=== PATIENT | female | born 1985 | race Caucasian/White ===

== ENCOUNTER → 2017-05-25 | Outpatient (CLI) | payer OTHER ==
[2017-05-25 17:23] LABS: BASO # 0.1 10^3/uL (0.0-0.2); BASO % 0.7 % (0.0-1.0); EOS # 0.1 10^3/uL (0.0-0.50); IMMATURE GRANULOCYTE % 0.7 % (0-0); LYMPH % 22.1 % (24.0-44.0); MEAN CORPUSCULAR HEMOGLOBIN 29.4 pg (27.0-33.0); MEAN CORPUSCULAR HGB CONC 33.3 g/dl (32.0-36.5); MEAN CORPUSCULAR VOLUME 88.5 fl (80.0-96.0); MONO % 11.6 % (0.0-5.0); NEUTROPHILS # 5.7 10^3/uL (1.8-7.7); NEUTROPHILS % 63.9 % (36.0-66.0); PLATELET COUNT, AUTOMATED 280 10^3/uL (150-450); RED CELL DISTRIBUTION WIDTH 12.5 % (11.5-14.5); WHITE BLOOD COUNT 8.9 10^3/uL (4.0-10.0)
[2017-05-26 11:05] LABS: HBsAg Prenatal NEGATIVE (NEGATIVE)
== END ==
LOC: M SMT 15:35
PROVIDERS: ATTEND Advanced Practice Midwife
DX: Z34.81 Encounter for supervision of other normal pregnancy, first trimester (principal); Z3A.11 11 weeks gestation of pregnancy

== ENCOUNTER → 2017-06-08 | Outpatient (CLI) | payer OTHER ==
--- NOTE | 2017-06-08 16:04 | REP ---
Clinical: Dating and viability. Technique: Transabdominal first trimester obstetrical ultrasound with color Doppler evaluation. Findings: Single live early intrauterine is appreciated. Biometrical measurements corresponds to 14 weeks 4 days gestational age with estimated date of delivery 12/03/2017 . heart rate equals 153 beats per minute. No gross abnormalities are identified. Impression: Single live early intrauterine at 14 weeks 4 days gestational age. Complete anatomical assessment should be performed and 19-20 weeks. Signed by Barron Cruz MD 06/08/2017 03:56 P
== END ==
LOC: M SMT 14:55
PROVIDERS: ATTEND Advanced Practice Midwife
DX: Z34.81 Encounter for supervision of other normal pregnancy, first trimester (principal)

== ENCOUNTER → 2017-06-30 | Outpatient (CLI) | payer OTHER | LOC: M SMT 10:46 | PROVIDERS: ATTEND Advanced Practice Midwife | DX: Z13.79 Encounter for other screening for genetic and chromosomal anomalies (principal) ==

== ENCOUNTER → 2017-07-28 | Outpatient (CLI) | payer OTHER | LOC: M SMT 13:50 | DX: Z34.82 Encounter for supervision of other normal pregnancy, second trimester (principal); Z3A.21 21 weeks gestation of pregnancy | CPT/HCPCS: 76811 ==

== ENCOUNTER → 2017-08-28 | Outpatient (CLI) | payer OTHER ==
[2017-08-28 13:36] LABS: HEMATOCRIT 37.4 % (36.0-47.0); HEMOGLOBIN 12.3 g/dl (12.0-16.0); MEAN CORPUSCULAR HEMOGLOBIN 29.8 pg (27.0-33.0); MEAN CORPUSCULAR HGB CONC 32.9 g/dl (32.0-36.5); MEAN CORPUSCULAR VOLUME 90.6 fl (80.0-96.0); PLATELET COUNT, AUTOMATED 194 10^3/uL (150-450); RED BLOOD COUNT 4.13 10^6/uL (4.00-5.40); RED CELL DISTRIBUTION WIDTH 12.9 % (11.5-14.5)
[2017-08-28 14:00] LABS: GLUCOSE CHALLENGE TEST 1 HOUR 92 MG/DL (LESS THAN 140)
== END ==
LOC: M SMT 09:26
DX: Z34.82 Encounter for supervision of other normal pregnancy, second trimester (principal)

== ENCOUNTER → 2017-11-07 | Outpatient (REF) | payer OTHER | LOC: M LAB REF 17:53 | DX: Z34.83 Encounter for supervision of other normal pregnancy, third trimester (principal) ==

== ENCOUNTER 2017-11-17 06:45 | Inpatient (IN) | payer OTHER ==
[2017-11-17 08:49] LABS: HEMATOCRIT 38.1 % (36.0-47.0); HEMOGLOBIN 13.1 g/dl (12.0-15.5); MEAN CORPUSCULAR HEMOGLOBIN 29.7 pg (27.0-33.0); MEAN CORPUSCULAR HGB CONC 34.4 g/dl (32.0-36.5); MEAN CORPUSCULAR VOLUME 86.4 fl (80.0-96.0); PLATELET COUNT, AUTOMATED 171 10^3/uL (150-450); RED BLOOD COUNT 4.41 10^6/uL (4.00-5.40); RED CELL DISTRIBUTION WIDTH 12.8 % (11.5-14.5); WHITE BLOOD COUNT 11.8 10^3/uL (4.0-10.0)
[2017-11-17] MEDS ORDERED: miSOPROStol 50 MCG 1/2 TAB (S0191) PV (09:00)
[2017-11-17] MEDS: LR 1,000 ML IV (11:00)
[2017-11-17] MEDS ORDERED: LR 1,000 ML IV (11:00)
[2017-11-17] MEDS ORDERED: FENTANYL 2MCG/ML ROPIVACAINE 0.2% IN 0.9% NACL 200ML IVBAG As Ordered (11:08)
[2017-11-17] MEDS ORDERED: OXYTOCIN 30 UNITS IN 0.9% NaCl 500ML IV BAG (J2590) As Ordered (11:38)
[2017-11-17] MEDS ORDERED: fentaNYL 100 MCG/2 ML INJECTION (J3010) As Ordered (11:43)
[2017-11-17] MEDS ORDERED: MORPHINE 10 MG/ML 1ML VIAL (J2270) As Ordered (11:43)
[2017-11-17] MEDS: OXYTOCIN DRIP 30 UNITS in APPROPRIATE DILUENT 1 EA IV (12:00)
[2017-11-17] MEDS ORDERED: RHOGAM 300 MCG (1500 IU) INJ (J2790) IM (12:45)
[2017-11-17] MEDS ORDERED: MOM 30ML SUSPENSION UDC PO (12:45)
[2017-11-17] MEDS ORDERED: DIBUCAINE 1% OINTMENT 30GM TOP (12:45)
[2017-11-17] MEDS ORDERED: ACETAMINOPHEN 500 MG TAB PO (12:45)
[2017-11-17] MEDS: LIDOCAINE 1% MDV 20ML VIAL INFIL (12:45)
[2017-11-17] MEDS ORDERED: METHYLERGONOVINE MALEATE 0.2 MG TAB PO (12:45)
[2017-11-17] MEDS ORDERED: ANUSOL HC CREAM 30GM TOP (12:45)
[2017-11-17] MEDS ORDERED: MEASLES,MUMPS,RUBELLA VACCINE INJ (MMR-II) (90707) SC (12:45)
[2017-11-17] MEDS: KETOROLAC 30 MG/ML VIAL (J1885) IV ×2 (13:02→19:00)
[2017-11-17] MEDS: PRENATAL VITAMINS CHEWABLE TABLET PO (16:00)
[2017-11-17] MEDS: PERCOCET 5MG/325MG TAB PO (16:01)
[2017-11-18] MEDS: KETOROLAC 30 MG/ML VIAL (J1885) IV (01:39)
[2017-11-18] MEDS: PRENATAL VITAMINS CHEWABLE TABLET PO (09:37)
[2017-11-18] MEDS: IBUPROFEN 800 MG TAB PO ×2 (11:01→18:31)
[2017-11-18] MEDS ORDERED: IBUPROFEN 800 MG TAB PO (15:00)
[2017-11-18] MEDS: DOCUSATE SODIUM 100 MG CAP PO (22:04)
[2017-11-19] MEDS: IBUPROFEN 800 MG TAB PO (02:00)
== END 2017-11-19 12:47 | disposition home or self-care (01) | DRG 775 ==
LOC: M LDO 06:45 → M LDI 07:34 → M OBS 14:58
PROVIDERS: Specialist
PROC: 10E0XZZ Delivery of Products of Conception, External Approach (ICD-10-PCS; principal; 2017-11-17)
PROC: 0HQ9XZZ Repair Perineum Skin, External Approach (ICD-10-PCS; 2017-11-17)
DX: O70.0 First degree perineal laceration during delivery (principal); Z37.0 Single live birth; Z3A.37 37 weeks gestation of pregnancy